=== PATIENT | female | born 1980 | race Caucasian/White ===

== ENCOUNTER 2018-08-21 07:58 | Inpatient (IN) | payer BC ==
[~2018-08-21 07:58] MED LIST: cefOXitin 2 GM Vial ONE
[2018-08-21] MEDS ORDERED: Gabapentin 300 MG Cap PO ONE (08:45)
[2018-08-21] MEDS ORDERED: Scopolamine 1.5 MG Transdermal Patch TOP SCH (08:45)
[2018-08-21] MEDS ORDERED: Acetaminophen 500 MG Tab PO ONE (08:45)
[2018-08-21] MEDS ORDERED: Celecoxib 200 MG Cap PO ONE (08:45)
[2018-08-21] MEDS ORDERED: Dextrose 5%-Lactated Ringers 1,000 ML IV SCH (09:00)
[2018-08-21] MEDS ORDERED: Lidocaine 2% 100 MG/5 ML Syringe IVPUSH SCH (10:30)
[2018-08-21] MEDS ORDERED: Lidocaine 0.4%/D5W 2 GM/500 ML BAG IV SCH (10:30)
[2018-08-21] MEDS ORDERED: Ketamine 50 MG in Sodium Chloride 0.9% 49.5 ML IV SCH ×2 (10:30→11:00)
[2018-08-21] MEDS ORDERED: Ropivacaine 60 ML, Dexamethasone 8 MG, EPINEPHrine 0.4 MG, Sodium Chloride 0.9% 17.6 ML NERVRT SCH ×4 (10:30)
[2018-08-21] MEDS ORDERED: Ketamine 500 MG/5 ML MDV IV SCH (10:30)
[2018-08-21] MEDS ORDERED: fentaNYL 250 MCG/5 ML SDV ONE (10:58)
[2018-08-21] MEDS ORDERED: Rocuronium 50 MG/5 ML Vial ONE (10:58)
[2018-08-21] MEDS ORDERED: Lactated Ringers 1,000 ML ONE ×3 (10:58→13:40)
[2018-08-21] MEDS ORDERED: Dexamethasone 4 MG/ML SDV ONE (10:58)
[2018-08-21] MEDS ORDERED: Glycopyrrolate 0.2 MG/ML 5 ML MDV ONE (10:58)
[2018-08-21] MEDS ORDERED: Propofol 200 MG/20 ML SDV ONE (10:58)
[2018-08-21] MEDS ORDERED: Neostigmine Methylsulfate 1 MG/ML 5 ML Syringe ONE (10:58)
[2018-08-21] MEDS ORDERED: Succinylcholine 200 MG/10 ML MDV ONE (10:58)
[2018-08-21] MEDS ORDERED: Ondansetron 4 MG/2 ML SDV ONE (10:58)
[2018-08-21] MEDS ORDERED: Midazolam 1 MG/ML 2 ML SDV ONE (10:59)
[2018-08-21] MEDS: cefOXitin 2 GM in Sodium Chloride 0.9% 50 ML IV ONE ×2 (12:30→20:01)
[2018-08-21] MEDS ORDERED: Labetalol 20 MG/4 ML Syringe ONE (12:57)
[2018-08-21] MEDS ORDERED: HYDROmorphone 1 MG/ML Syringe IV PRN (15:23)
[2018-08-21] MEDS ORDERED: Metoclopramide 10 MG/2 ML SDV IVPUSH PRN (15:27)
[2018-08-21] MEDS ORDERED: diphenhydrAMINE 50 MG/ML SDV IVPUSH PRN (15:27)
[2018-08-21] MEDS ORDERED: Labetalol 20 MG/4 ML Syringe IVPUSH PRN (15:27)
[2018-08-21] MEDS ORDERED: hydrOXYzine HCl 100 MG/2 ML SDV IM PRN (15:27)
[2018-08-21] MEDS ORDERED: Pantoprazole 40 MG Vial IVPUSH SCH (16:00)
[2018-08-21] MEDS ORDERED: MVI, Adult with Vitamin K 10 ML, Thiamine 200 MG, Chromium/Copper/Mang/Selen/Zn 1 ML in... IV SCH ×4 (16:00)
[2018-08-21] MEDS: Dextrose 5%-Lactated Ringers 1,000 ML IV SCH ×2 (16:19→22:41)
[2018-08-21] MEDS: Magnesium Sulfate/Water 2 GM in Premix Bag 1 BAG IV SCH ×2 (16:42→22:22)
[2018-08-21] MEDS: Acetaminophen Soln 650 MG/20.3 ML UD Cup PO SCH ×2 (16:45→22:22)
[2018-08-21] MEDS: cefOXitin 2 GM in Sodium Chloride 0.9% 50 ML IV SCH (18:40)
[2018-08-21] MEDS: Ondansetron 4 MG/2 ML SDV IVPUSH PRN ×2 (18:44→22:41)
[2018-08-21] MEDS: HYDROmorphone 0.5 MG/0.5 ML Syringe IVPUSH PRN (20:18)
[2018-08-21] MEDS: Heparin Sodium 5,000 Units/ML Vial SUBCUT SCH (20:19)
[2018-08-21] MEDS: Gabapentin 250 MG/5 ML Solution ML 470 ML Bottle PO SCH (20:19)
[2018-08-22] MEDS: cefOXitin 2 GM in Sodium Chloride 0.9% 50 ML IV SCH ×3 (00:10→13:28)
[2018-08-22] MEDS: HYDROmorphone 0.5 MG/0.5 ML Syringe IVPUSH PRN (01:06)
[2018-08-22] MEDS ORDERED: Iohexol 647 MG/ML 50 ML SDV IVPUSH PRN (03:05)
[2018-08-22] MEDS: Acetaminophen Soln 650 MG/20.3 ML UD Cup PO SCH ×4 (03:21→22:22)
[2018-08-22] MEDS: Magnesium Sulfate/Water 2 GM in Premix Bag 1 BAG IV SCH ×4 (03:21→22:22)
--- NOTE | 2018-08-22 04:17 | CRLCR ---
INDICATION: Mandy-en-Y TECHNIQUE: Abdomen 2 view. COMPARISON: None FINDINGS: Transit of oral contrast through the gastric pouch and proximal jejunum with no evidence of extravasation. Surgical drain noted in the left upper quadrant. IMPRESSION: Transit of oral contrast through the gastric pouch and jejunum without evidence of extravasation. Dictated by Collin Castillo MD @ 08/22/2018 4:17:13 AM Dictated by: Collin Castillo MD @ 08/22/2018 04:17:18 (Electronically Signed)
[2018-08-22] MEDS: Celecoxib 200 MG Cap PO SCH (07:50)
[2018-08-22] MEDS: Heparin Sodium 5,000 Units/ML Vial SUBCUT SCH ×2 (07:50→20:44)
[2018-08-22] MEDS: Gabapentin 250 MG/5 ML Solution ML 470 ML Bottle PO SCH ×3 (08:42→20:44)
[2018-08-22] MEDS: SCOPOLAMINE PATCH CHECK TOP SCH (08:43)
[2018-08-22] MEDS ORDERED: Melatonin 3 MG Tab PO PRN (09:04)
[2018-08-22] MEDS: HYDROmorphone 2 MG Tab PO PRN ×2 (09:09→15:28)
[2018-08-22] MEDS: Metoprolol Succinate 25 MG Tab.ER PO SCH (09:10)
[2018-08-22] MEDS: Dextrose 5%-Lactated Ringers 1,000 ML IV SCH (10:51)
[2018-08-22] MEDS: Ondansetron 4 MG/2 ML SDV IVPUSH PRN (15:28)
[2018-08-22] MEDS: Pantoprazole 40 MG Delayed-Release Granules 1 Packet PO SCH (15:34)
[2018-08-22] MEDS ORDERED: MVI, Adult with Vitamin K 10 ML, Thiamine 200 MG, Chromium/Copper/Mang/Selen/Zn 1 ML in... IV SCH ×4 (16:00)
[2018-08-23] MEDS: Acetaminophen Soln 650 MG/20.3 ML UD Cup PO SCH ×4 (04:25→21:14)
[2018-08-23] MEDS: Magnesium Sulfate/Water 2 GM in Premix Bag 1 BAG IV SCH ×2 (04:26→09:18)
[2018-08-23] MEDS: Dextrose 5%-Lactated Ringers 1,000 ML IV SCH (04:26)
[2018-08-23] MEDS: Metoprolol Succinate 25 MG Tab.ER PO SCH (08:00)
[2018-08-23] MEDS ORDERED: Magnesium Hydroxide 400 MG/5 ML Susp 30 ML Cup PO PRN (08:34)
[2018-08-23] MEDS ORDERED: Magnesium Hydroxide 400 MG/5 ML Susp 30 ML Cup PO ONE (09:00)
[2018-08-23] MEDS ORDERED: Cyanocobalamin (Vitamin B12) 1,000 MCG/ML SDV IM ONE (09:00)
[2018-08-23] MEDS: Heparin Sodium 5,000 Units/ML Vial SUBCUT SCH ×2 (09:11→20:17)
[2018-08-23] MEDS: Celecoxib 200 MG Cap PO SCH (09:11)
[2018-08-23] MEDS: SCOPOLAMINE PATCH CHECK TOP SCH (09:13)
[2018-08-23] MEDS: Gabapentin 250 MG/5 ML Solution ML 470 ML Bottle PO SCH ×3 (09:21→20:42)
--- NOTE | 2018-08-23 14:04 | PN ---
DATE OF SERVICE: 08/22/2018 The patient has been afebrile with stable vital signs, status post Mandy-en-Y gastric bypass and diaphragmatic hernia repair yesterday. Clinically, she has done well. Her upper GI x- ray looks good, and we will begin a step-2 diet today. She has been getting some intermittent IV Dilaudid, we will switch that to oral. Otherwise, start her other pertinent oral medications and maximize activity and work with pulmonary toilet. Connor Oquendo MD /[id number]
[2018-08-23] MEDS: Pantoprazole 40 MG Delayed-Release Granules 1 Packet PO SCH (15:48)
[2018-08-23] MEDS: Ondansetron 4 MG Tab.DIS PO PRN (20:29)
[2018-08-23] MEDS ORDERED: Gabapentin 300 MG Cap PO ONE (21:00)
[2018-08-24] MEDS: Acetaminophen Soln 650 MG/20.3 ML UD Cup PO SCH ×2 (03:29→09:02)
[2018-08-24] MEDS: Celecoxib 200 MG Cap PO SCH (09:02)
[2018-08-24] MEDS: Metoprolol Succinate 25 MG Tab.ER PO SCH (09:02)
[2018-08-24] MEDS ORDERED: Scopolamine 1.5 MG Transdermal Patch TOP ONE (09:08)
[2018-08-24] MEDS: Ondansetron 4 MG Tab.DIS PO PRN (10:14)
[2018-08-24] MEDS: Heparin Sodium 5,000 Units/ML Vial SUBCUT SCH (10:24)
--- NOTE | 2018-08-24 15:23 | PN ---
DATE OF SERVICE: 08/23/2018 The patient has been afebrile with stable vital signs. Oral intake is fairly good. We will give her some bowel stimulation today and otherwise maximize activity and work with pulmonary toilet. Dietary will see the patient early tomorrow prior to discharge home. Connor Oquendo MD /[id number]
--- NOTE | 2018-08-25 05:02 | DISCH ---
ADMISSION DIAGNOSES: Morbid obesity, BMI 40, essential hypertension, dyslipidemia, and depression. DISCHARGE DIAGNOSES: Laparoscopic Mandy-en-Y gastric bypass surgery, liver biopsy, repair of diaphragmatic hernia for morbid obesity, hepatomegaly, and diaphragmatic hernia. DATE OF SURGERY: 08/21/2018. SURGEON: Connor Oquendo MD. HISTORY: Raissa Arciniega is a 38-year-old female with longstanding history of morbid obesity and increasing comorbidities. After preoperative evaluation and discussion of possible risks and possible complications, she wished to proceed with surgical procedure. HOSPITAL COURSE: Raissa had her surgery on 08/21/2018. She had no operative complications. On postop day 1, she was started on a step 2 gastric bypass diet. On postop day 3, her bowels were stimulated and her activity was encouraged. On postop day 3, she was able to be discharged to home. She received dietary instruction, B12 1000 mcg IM injection. Activity was good. Pain was well managed. Vital signs stable. PHYSICAL EXAMINATION: GENERAL: Raissa Arciniega is a 38-year-old female. VITAL SIGNS: Height is 5 feet 8.11 inches, weight is 269 pounds. TPR is 98, 68, 12. Blood pressure 131/79. HEENT: Negative. NECK: Supple. HEART: Regular rate and rhythm. LUNGS: Clear. ABDOMEN: Sutures intact. 4x4 over MICHELINE drain site and abdominal binder is on. EXTREMITIES: Without peripheral edema. DISPOSITION: Discharged to home. CONDITION: Stable and improving. FOLLOWUP APPOINTMENT: Elizabeth Winslow PA-C on 09/01/2018 at 10:15 a.m. Appointment at [place], [place]. HOME MEDICATIONS: 1. Tylenol 650 mg q.6 hours. 2. Celebrex 200 mg p.o. daily #14, start tomorrow. 3. Zofran ODT 4 mg q.4 hours p.r.n. nausea. 4. She is to resume taking home medication of metoprolol-XL 25 mg daily. DIET: Step 2 gastric bypass diet with no cereal for 2 weeks. Drink 8 to 10 glasses of water a day. ACTIVITY: No lifting greater than 10 pounds for 2 weeks. Other activity, walk at least 6 times daily, distance and time as tolerated. Driving, do not drive for 1 week. May shower. DISCHARGE INSTRUCTIONS: Notify provider if any fever, increased pain, nausea, or vomiting. Keep site clean and dry. Wear abdominal binder for 2 weeks and then as tolerated. Use incentive spirometer 10 times every hour while awake.
--- NOTE | 2018-08-27 13:17 | OR ---
DATE OF PROCEDURE: 08/21/2018 PREOPERATIVE DIAGNOSIS: Morbid obesity. POSTOPERATIVE DIAGNOSES: 1. Morbid obesity. 2. Marked hepatomegaly. 3. Paraesophageal diaphragmatic hernia. OPERATIVE PROCEDURES: 1. Laparoscopic Mandy-en-Y gastric bypass with long limb gastroenterostomy (70025). 2. Rogelio-Cut needle liver biopsy (58184). 3. Repair of paraesophageal diaphragmatic hernia (06126). ANESTHESIA: General. SOLAR DEVELOPMENT ENGINEER: Elizabeth Winslow PA-C, and LALA Boone. INDICATION FOR PROCEDURE: This is a 38-year-old female, presenting with longstanding morbid obesity and increasingly significant comorbidities. After preoperative evaluation and discussion, she wished to proceed with a gastric bypass procedure. Potential risks of procedure including bleeding, infection, leaks from various GI tract closures, problems with bowel obstruction over time as well as possibility of cardiopulmonary, septic, or hemorrhagic complications leading to were discussed, and the patient wishes to proceed. DETAILS OF PROCEDURE: The patient was taken to the operating room and after general endotracheal anesthesia was induced, she was placed in a lithotomy position and the abdomen was then prepped and draped. 15 cm inferior and 5 cm left of xiphoid process, a transverse incision was made and peritoneal cavity entered under direct vision with an Optiview trocar inflated to 15 mmHg pressure of CO2. Laparoscope was then reinserted. No underlying trocar insertion site injuries were seen. Following this, 5 additional trocars were placed across the upper mid abdomen. Bilateral transversus abdominis plane blocks were then placed under direct vision and general exploration was undertaken. The patient was noted to have marked hepatomegaly with liver volume being roughly 2 to 3 times normal and liver appeared to be grossly fatty infiltrated. Rogelio-Cut needle biopsy was obtained from the left lobe of the liver. Minimal bleeding from the biopsy sites was controlled with electrocautery. The omentum was then divided in the midline up to the level of the transverse colon. This allowed identification of small bowel to ligament of Treitz. Small bowel was then traced out 150 cm distal to that point where it was divided transversely with a DANA stapler. Small bowel was then traced out additional 150 cm where the [id number] enteroenterostomy was accomplished with internal firing of the Endo-DANA 60 mm stapler. Common opening was then closed transversely with the same stapler and angles anastomosed and mesenteric defect approximated with some 0 Ethibond stitch along with 4 mL of fibrin sealant. The divided end of the Mandy limb was from the mesentery for a few centimeters, which allowed an antecolic position of the Mandy limb up to the level of gastroesophageal junction without tension. The liver was then retracted anteriorly and the patient was noted to have a moderate-sized paraesophageal diaphragmatic hernia. This contained some perigastric fat along with some degree of gastric fundus prolapsing in a plane anterior to the course of the esophagus and the peritoneum overlying the hernia was incised and reflected downward. An anterior repair of the diaphragmatic hernia was then accomplished with 0 Ethibond sutures reinforced PTFE pledgets. At this point, the gastrointestinal catheter was then inflated 15 mL and pulled up snugly against the EG junction. Gastric wall of the apex balloon was then marked with electrocautery, and balloon catheter deflated and pulled up into esophagus. The lesser omental tissue adjacent to the gastric cardia was then incised allowing dissection of the stomach behind the area of the gastric cardia. The pouch formation was initiated with a transverse firing of the DANA stapler up to and through the angle of His. Upon completion of the pouch, both staple lines were noted to be intact. The anvil of a 25 mm EEA stapler was then attached to [place] sump tube. The latter was brought down through the mouth, allowing the anvil likewise to be pulled down to within the gastric pouch. Divided end of the Mandy limb was then opened, and main body of the EEA stapler was passed several centimeters into the lumen of small bowel, brought up the anvil, and united with it thus creating the gastrojejunostomy. Upon removal of the stapler, double donuts of mucosa were noted within it. Small bowel was closed off with a vascular staple line. Gastrojejunostomy was reinforced with some 3-0 Vicryl seromuscular stitch along with fibrin sealant. Leak test was accomplished with injection of 120 mL of air in the gastric pouch while submerged within cefoxitin-containing saline solution. Single Ger-Munoz drain was then placed adjacent to gastrojejunostomy, taken out through subcostal trocar site on the left side and the trocars were removed, peritoneal cavity deflated. The incision was closed with some 4-0 Vicryl skin stitch and a dressing applied. The patient was taken to the recovery room in satisfactory condition. There were no evident complications. Physician clothing sales assistant, Elizabeth Winslow, played an essential role in assisting in this case, helping to position the patient, retract structures as needed, as well as suturing and cutting sutures when indicated. Her presence improved the patient's safety and decreased the operative time. Connor Oquendo MD /[id number]
== END 2018-08-24 10:26 | disposition home or self-care (01) | DRG 403 ==
LOC: JP.SDS 07:58 → JP.SDSSCHI 07:58 → EDSTATUS 09:30 → JP.2SS 14:00
PROVIDERS: ADMIT Surgery; ATTEND Surgery
PROC: 0D164ZA Bypass Stomach to Jejunum, Percutaneous Endoscopic Approach (ICD-10-PCS; principal; 2018-08-21)
PROC: 0BQT4ZZ Repair Diaphragm, Percutaneous Endoscopic Approach (ICD-10-PCS; principal; 2018-08-21)
PROC: 0FB24ZX Excision of Left Lobe Liver, Percutaneous Endoscopic Approach, Diagnostic (ICD-10-PCS; principal; 2018-08-21)
DX: E66.01 Morbid (severe) obesity due to excess calories (principal); Z68.41 Body mass index [BMI] 40.0-44.9, adult; K44.9 Diaphragmatic hernia without obstruction or gangrene; R16.0 Hepatomegaly, not elsewhere classified; I10 Essential (primary) hypertension; G43.909 Migraine, unspecified, not intractable, without status migrainosus; E78.5 Hyperlipidemia, unspecified; F32.9 Major depressive disorder, single episode, unspecified; Z88.1 Allergy status to other antibiotic agents; Z88.8 Allergy status to other drugs, medicaments and biological substances
CPT/HCPCS: 36415; 74240; 80053; 81025; 83735; 84100; 85027; 86850; 86900; 86901; 88307; 88313; 94762; A9270-GY; C9113; J0171; J0330; J0694; J1100; J1170; J1644; J2001; J2250; J2405; J2704; J2710; J2795; J3010; J3410; J3411; J3420; J3475; J3490; J7042; J7050; J7120; Q9967

== ENCOUNTER 2018-10-30 06:47 | Day surgery (SDC) | payer BC ==
[2018-10-30] MEDS ORDERED: Midazolam 1 MG/ML 2 ML SDV ONE (08:14)
[2018-10-30] MEDS ORDERED: Propofol 200 MG/20 ML SDV ONE (08:14)
[2018-10-30] MEDS ORDERED: fentaNYL 100 MCG/2 ML SDV ONE (08:14)
[2018-10-30] MEDS ORDERED: Lactated Ringers 1,000 ML IV ONE (08:15)
[2018-10-30] MEDS ORDERED: Cyanocobalamin (Vitamin B12) 1,000 MCG/ML SDV IM ONE (08:15)
[2018-10-30] MEDS ORDERED: Glycopyrrolate 0.2 MG/ML 2 ML SDV IVPUSH ONE (09:00)
[2018-10-30] MEDS ORDERED: MVI, Adult with Vitamin K 10 ML, Thiamine 200 MG, Chromium/Copper/Mang/Selen/Zn 1 ML in... IV ONE ×4 (09:15)
--- NOTE | 2018-11-02 11:29 | OR ---
DATE OF PROCEDURE: 10/30/2018 PREOPERATIVE DIAGNOSIS: Probable stricture at gastrojejunostomy. 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 OPERATIVE PROCEDURE: Upper GI endoscopy with dilation of gastrojejunostomy (96343). ANESTHESIA: IV sedation. INDICATION FOR PROCEDURE: This is a 38-year-old status post Mandy-en-Y gastric bypass on 08/21/2018, presenting with symptoms suggestive of stricturing at the gastrojejunostomy. Plan is to proceed with an upper GI endoscopy with dilation as indicated. Potential risks including bleeding and perforation were discussed, and the patient wishes to proceed. DETAILS OF PROCEDURE: The patient was taken to the operating room and placed in a left lateral decubitus position. IV sedation was administered, after which the upper GI endoscope was passed orally through the length of the esophagus and into the area of the gastrojejunostomy. This was moderately strictured with 1 cm scope not quite being able to be passed through the anastomosis. Otherwise, there was minimal inflammation present at the mucosal level. A Bard gastrointestinal catheter was then centered across the anastomosis and inflated to 36-Kiswahili. This was held in position for 1 minute, after which balloon catheter was deflated and withdrawn. Scope easily passed through the anastomosis at this point and no complication were noted. The procedure was then concluded. The patient was taken to the recovery room in satisfactory condition. Connor Oquendo MD /[id number]
== END 2018-10-30 11:30 | disposition home or self-care (01) ==
LOC: JP.SDS 06:47
PROVIDERS: ATTEND Surgery
DX: K95.89 Other complications of other bariatric procedure (principal); I10 Essential (primary) hypertension; E78.5 Hyperlipidemia, unspecified; F32.9 Major depressive disorder, single episode, unspecified; Z88.0 Allergy status to penicillin; Z88.8 Allergy status to other drugs, medicaments and biological substances
CPT/HCPCS: 43245; 81025; J2250; J2704; J3010; J3411; J3420; J3490; J7120